=== PATIENT | male | born 1980 | race Caucasian/White ===

== ENCOUNTER 2020-04-16 21:40 | Emergency (ER) | payer OTHER, SELFPAY ==
[2020-04-16 21:51] VITALS: BP 177/110; PULSE 89; RESP 18; TEMP 37.2; O2SAT 99; BMI 38.0
--- NOTE | 2020-04-16 21:56 | ED_ITS ---
HPI - Back Pain/Injury General Chief Complaint: Back Pain/Injury Stated Complaint: thinks he threw his back out Time Seen by Provider: 04/16/20 21:53 Source: patient Limitations: no limitations History of Present Illness HPI Narrative: 39-year-old gentleman presents with acute back pain. He noted some pain in his lower back off to the right side yesterday after lifting moderately heavy object. Was minimally troublesome and seem to improve after stretching this morning. He then was bending down twisted slightly and felt a severe pain in the same location with significant muscle spasm. He tried ibuprofen and Tylenol and found that it was ineffective in controlling the pain. He describes it is localized in the right paraspinous area nonradiating with no associated fevers, specific trauma, change to bowel or bladder and no difficulty with gait other than adjusting to pain in the low back. He has no history of IV drug use or recreational narcotic use. Related Data Previous Rx's Medication Instructions Recorded cyclobenzaprine 10 mg PO TID PRN #14 tab 04/16/20 Review of Systems Review of Systems Narrative: Pertinent positive and negative findings as per HPI Remainder of review of systems is otherwise unremarkable for Constitutional: Fevers, chills, weakness ENT: No sore throat, neck pain, ear pain CV: Chest pain, palpitations, dyspnea on exertion Respiratory: Cough, wheeze, dyspnea GI: Nausea, vomiting, diarrhea, change in bowel habits, black or bloody stools : Dysuria, hematuria, flank pain MS: Muscle weakness, numbness, joint swelling or warmth Skin: Rashes, nonhealing lesions Neuro: Syncope, dizziness, tingling Patient History Social History Smoking Status: Never smoker Smoking Status: Never smoker alcohol intake frequency: holidays/special occasions only Substance Use Type: does not use Exam Narrative Exam Narrative: General: Alert appropriate in no acute distress Respiratory: Able to speak in full sentences, no obvious respiratory distress Skin: No obvious rashes, warm and dry Abdomen: No flank pain Neurologic: Grossly intact no obvious asymmetries or abnormalities. 1+ reflexes bilaterally at patellas. Full sensation both lower extremities. Spine: No point tenderness along the spine and no rashes over the low back. Some minor paraspinous spasm lumbar area right side. Psych, appropriate insight and affect, cooperative Extremities: Pain is exacerbated with straight leg raises bilaterally however he is able to straight and legs completely and flex forward slightly. Initial Vital Signs Initial Vital Signs: Vital Signs Temperature 98.9 F 04/16/20 21:51 Pulse Rate 89 04/16/20 21:51 Respiratory Rate 18 04/16/20 21:51 Blood Pressure 177/110 H 04/16/20 21:51 Pulse Oximetry 99 04/16/20 21:51 Course Orders Ordered: Discontinued Medications Ketorolac Tromethamine (Toradol) 30 mg IM NOW ONE Stop: 04/16/20 22:14 Last Admin: 04/16/20 22:20 Dose: 30 mg Documented by: PETERSON Oxycodone/Acetaminophen (Endocet 5/325 Prepack) 1 bottle MISC SEEINSTR ONE Stop: 04/16/20 22:13 Last Admin: 04/16/20 22:21 Dose: 1 bottle Documented by: PETERSON Vital Signs Vital signs: Vital Signs - 8 hr 04/16/20 21:51 Temperature 98.9 F Pulse Rate 89 Respiratory Rate 18 Blood Pressure 177/110 H Pulse Oximetry 99 MDM - Back Pain/Injury MDM Narrative Medical decision making narrative: Fairly typical presentation for acute back pain without any red flags to suggest additional imaging or studies required. Conservative management is reviewed with the patient. He is safe for home discharge Discharge Plan Departure Patient Disposition: Home Clinical Impression: Acute low back pain Qualifiers: Back pain laterality: right Sciatica presence: without sciatica Qualified Code (s): M54.5 - Low back pain Discharge Date/Time: 04/16/20 22:26 Instructions: DI for Back Strain or Sprain Activity Restrictions/Additional Instructions: Thank you for coming in tonight This is a classic presentation for regular every day low back pain. Using 400 mg of ibuprofen (2 [id number] pills) and 1 Tylenol every 6 hours can be very helpful in controlling pain. For severe pain substituting 1-2 Percocet for the Tylenol can be helpful. After the 1st 2 days of an injury like this narcotics typically are not quite as helpful. I will give you a prescription for Flexeril, a muscle relaxer that may be more helpful in combination with the ibuprofen and Tylenol after the acute injury has started healing. If you have worsening pain, find that you are unable to have a bowel movement or to urinate please make sure that you return for further evaluation Doing a bit of research on preventing low back pain and keeping your core muscles as healthy as possible will help prevent further problems with your back. Prescriptions: New cyclobenzaprine 10 mg tablet 10 mg PO TID PRN (Reason: muscle spasm) Qty: 14 RF: 0
[2020-04-16] MEDS: KETOROLAC 60 MG/2 ML VIAL 30 MG IM (22:20)
[2020-04-16] MEDS: OXYCODONE/APAP 5/325 PREPACK 1 BOTTLE MISC (22:21)
== END 2020-04-16 22:26 | disposition home or self-care (01) ==
PROVIDERS: Emergency Provider Emergency Medicine
DX: M54.5 Low back pain (principal)
CPT/HCPCS: 96372; 99282; 99283; J1885